=== PATIENT | female | born 1940 | race Caucasian/White ===

== ENCOUNTER → 2019-02-19 | Day surgery (SDC) | payer MEDICARE ==
[~2019-02-19] MED LIST: ASPIRIN81 MG PO; CALCIUM 500+D1 EACH PO; FENTANYL CITRATE/PF 100MCG/2 ML INJ ONE; FERROUS SULFAT324 MG PO; GLIMEPIRIDE1 MG PO; HYDROCHLOROTHIA25 MG PO; LISINOPRIL2.5 MG PO; METFORMIN HCL500 M2 PO; METOCLOPRAMIDE10 MG PO; METOPROLOL TART50 MG PO; MIDAZOLAM HCL 2 MG/2 ML VIAL ONE; OMEPRAZOLE40 MG PO; OR PHACO EYE KIT ONE; PREOP PHACO EYE KIT ONE; SIMVASTATIN20 MG PO; SUPER B COMPLEX PO; VITAMIN C WIT1000 MG PO; XARELTO20 MG PO; [UNRECOGNIZED DRUG - OTHER] PO
--- OUTSIDE RECORDS SUMMARY | 2019-02-19 08:31 | XMS REPORT | Encounter Summary ---
Author Organization Unknown Address [address] [place] [address] Phone [phone] Care Team Providers Care Script Artist Name Role Phone Dr. Jesse Byrd 3 [phone] Jesse Byrd Jr, MD 3 [phone] Tera Torres MD 82 [phone] Maurice Call MD 107 [phone] Windy Jacobson MD 126 [phone] Reason for Visit fever Instructions 1. Upper respiratory infection 2. Seasonal allergy Discussion Note: None recorded. Patient educational handouts: No information available. Plan of Care Reminders Provider Appointments None recorded. Lab None recorded. Referral None recorded. Procedures None recorded. Surgeries None recorded. Imaging None recorded. Medications Name Start Date Coricidin HBP Cold and Flu TAKE 2 TABS EVERY 4 - 6 HOURS dexamethasone 4 mg/mL injection solution Take 1 mL by injection route for 1 day. diltiazem ER 180 mg capsule,24 hr,extended release Take 1 capsule every day by oral route for 90 days. glimepiride 1 mg tablet Take 1 tablet every day by oral route for 90 days. hydrochlorothiazide 25 mg tablet Take 1 tablet every day by oral route for 90 days. lisinopril 5 mg tablet Take 1 tablet every day by oral route for 90 days. metformin ER 500 mg tablet,extended release 24 hr Take 2 tablets twice a day by oral route for 90 days. metoprolol tartrate 100 mg tablet Take 1 tablet twice a day by oral route. metronidazole 0.75 % topical gel APPLY A THIN LAYER TO THE AFFECTED AREA(S) BY TOPICAL ROUTE 2 TIMES PER DAY IN THE MORNING AND EVENING omeprazole 40 mg capsule,delayed release TAKE 1 CAPSULE BY MOUTH EVERY DAY OneTouch Delica Lancets 33 gauge Take 1 each every day by miscell. route for 90 days. OneTouch Ultra Blue Test Strip OneTouch Ultra Blue Test Strip Take 1 strip twice a day by miscell. route. simvastatin 20 mg tablet Take 1 tablet every day by oral route for 90 days. Tamiflu 75 mg capsule Take 1 capsule twice a day by oral route for 5 days. triamcinolone acetonide 40 mg/mL suspension for injection Take 1 mL by injection route for 1 day. Tylenol 500 mg tablet Take 2 tablets every 4 hours by oral route. Xarelto 20 mg tablet Take 1 tablet by oral route for 90 days. Medications Administered None recorded. Vitals Height Weight BMI Blood Pressure 5 ft 9 in 202 lbs 29.8 kg/m2 134/78 mm[Hg] Lab Results Date Name Specimen Result Interpretation Description Value Range Status Address 10/04/2018 Rapid Flu (A+B) Type Flu a negative [facility] ([facility]) Hobby: [id number] [id number], [place] Type Flu B negative [facility]) Hobby: [address] [address], [place] 10/04/2018 Glucose, Fingerstick, Blood Blood Glucose: mg/dl 98 [facility]) [address]: [address] [address], [place] 10/04/2018 Rapid Strep Group a, Throat Strep negative [facility] ([facility]) Hobby: [id number] [address], [place] 09/18/2018 Glucose, Fingerstick, Blood Blood Glucose: mg/dl 161 [facility] ([facility]) [address]obby: [address] [id number], [place] Allergies Code Code System Name Reaction Severity Status Onset NKDA Problems Name Status Onset Date Source Benign Hypertensive Heart Disease Active 03/28/2017 Paroxysmal Atrial Fibrillation Active 03/28/2017 Gastroesophageal Reflux Disease Active 03/28/2017 Type 2 Diabetes Mellitus Active 11/27/2017 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 11/27/2017 Peripheral Venous Insufficiency Active 11/27/2017 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 Rosacea Active 01/10/2018 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/10/2018 Tear of Medial Meniscus of Knee Active 10/01/2018 Rupture of Posterior Cruciate Ligament Active 10/01/2018 Procedures Date Name Performed by 10/19/2016 Colonoscopy & Polypectomy Information not available 07/17/2014 Other Information not available Hysterectomy (Partial) Information not available Vaccine List Vaccine Type pneumococcal conjugate PCV 13 06/16/20170.5 mL pneumococcal polysaccharide PPV23 11/05/2014 Social History Smoking Status Never Smoker Past Encounters 10/15/2018 Upper Respiratory Infection; Seasonal Allergy Jesse Byrd Jr, MD: [address], [address], [place] [address], Ph. 10/04/2018 Type 2 Diabetes Mellitus; Sore Throat Symptom; Fever; Viremia; Seasonal Allergic Rhinitis Karen Johnson MD: [address], [address], [place] [address], Ph. 09/18/2018 Type 2 Diabetes Mellitus; Paroxysmal Atrial Fibrillation; Epidermoid Cyst of Skin Jeses Byrd Jr, MD: [address], [address], [place] [address], Ph. History of Present Illness URI - AMS Reported By: Patient Upper Respiratory Symptoms: Onset/Timing: gradual. Duration: constant. Location: head, throat. Quality: no sore throat, nasal congestion/discharge, dry cough. Severity: moderate. Context: no sick contacts, no foreign travel. Associated Symptoms: no fever, no chills, no shortness of breath, no wheezing, no significant weight loss, no diarrhea, no nausea Review of Systems Comprehensive General Adult ROS Reported By: Patient Constitutional: Constitutional: no fever, no night sweats, no significant weight loss Eyes: Eyes: no vision change ENMT: Ears: no difficulty hearing, no ear pain. Mouth/Throat: sore throat Cardiovascular: Cardiovascular: no chest pain, no shortness of breath when walking Respiratory: Respiratory: no wheezing, no shortness of breath, cough Gastrointestinal: Gastrointestinal: no nausea, no diarrhea Musculoskeletal: Musculoskeletal: no arthralgias/joint pain Integumentary: Skin: no rashes Endocrine: Endocrine: fatigue Allergic/Immunologic: Allergy/Immunologic: runny nose Physical Exam Upper Respiratory Infection Exam Comprehensive Reported By: Patient Constitutional: General Appearance in no acute distress Head: Sinuses no tenderness Ears: Right External auditory canal normal appearance, no erythema. Left External auditory canal normal appearance, no erythema. Right Tympanic membrane dull, bulging. Left Tympanic membrane: dull, bulging Nose: Nasal Skin: no lesion, no lacerations. Nasal Mucosa normal, pink and moist Oral Cavity/Mouth: Oral Mucosa: normal, moist, no lesions. Posterior pharynx: lymphoid hyperplasia (cobblestoning) Lymph Nodes: Cervical no palpable lymph node enlargement Neck: Neck symmetrical, trachea midline Lungs: Respiratory effort unlabored. Auscultation breath sounds normal, no wheezing, no rales / crackles, no rhonchi Cardiovascular System: Auscultation regular rate and rhythm, no murmur, no rubs
--- OUTSIDE RECORDS SUMMARY | 2019-02-19 08:31 | XMS REPORT | Encounter Summary ---
Author Organization Unknown Address [address] [place] [address] Phone [phone] Care Team Providers Care Head Trimmer Name Role Phone Dr. Jesse Byrd 3 [phone] Jesse Byrd Jr, MD 3 [phone] Tera Torres MD 82 [phone] Maurice Call MD 107 [phone] Windy Jacobson MD 126 [phone] Reason for Visit Quality BMI DEPRESSION FALL; AWV Annual Wellness Visit Female (VFP); hypertension; diabetes Instructions 1. Adult health examination 2. Body mass index 25-29 - overweight learning about healthy weight 3. Overweight learning about healthy weight 4. Advance directive discussed with patient advance care planning: care instructions 5. Depression screening 6. At risk for falls preventing falls: care instructions 7. Type 2 diabetes mellitus glucose, fingerstick, blood metformin ER 500 mg tablet,extended release 24 hr glimepiride 1 mg tablet OneTouch Ultra Blue Test Strip OneTouch Delica Lancets 33 gauge 8. Benign hypertensive heart disease 9. Paroxysmal atrial fibrillation 10. Long-term current use of anticoagulant 11. Non-thrombocytopenic purpura 12. Screening for malignant neoplasm of breast 13. Screening for osteoporosis Discussion Note: None recorded. Plan of Care Patient Instructions Screening Recommendations 1. Vaccines Pneumococcal: discussed today and information sent with patient in their Annual Wellness health folder Influenza: Recommended today Shingles: discussed today and information sent with patient in their Annual Wellness health folder Tetanus: discussed today and information sent with patient in their Annual Wellness health folder 2. Mammography Screening: Recommended today 3. Colorectal cancer Screening Colonoscopy: Your next one in: 3 years Fecal Occult Blood: discussed today and information sent with patient in their Annual Wellness health folder 4. Bone Mass Measurement: Recommended today 5. Pap test / Pelvic Exam Screening: No screening necessary 6. Eye Exam Screening: discussed today 7. Cholesterol Screening: discussed today 8. Diabetes Screening: discussed today It was good to see you in the office today for your Medicare Annual Wellness Visit. You have been provided some information on healthy nutrition, including a diet rich in fruits and vegetables, minimizing simple carbohydrates, salt, and saturated fats. I want to encourage regular cardiovascular exercise such as walking at least 30 minutes daily, 5 times per week. Please remember to schedule any preventive health measures that we talked about today. You have also been provided education on fall prevention and community- based lifestyle interventions to help reduce health risks and promote healthy living in your Annual Wellness folder. Reminders Provider Appointments None recorded. Lab Glucose, Fingerstick, Blood 09/10/2018 [facility] ([facility]) Hobby Referral None recorded. Procedures None recorded. Surgeries None recorded. Imaging None recorded. Medications Name Start Date diltiazem ER 180 mg capsule,24 hr,extended release [...] 90 days. OneTouch Ultra Blue Test Strip Take 1 strip twice a day by miscell. route. OneTouch Ultra Blue Test Strip simvastatin 20 mg tablet Take 1 tablet every day by oral route for 90 days. Xarelto 20 mg tablet Take 1 tablet by oral route for 90 days. Medications Administered None recorded. Vitals Height Weight BMI Blood Pressure 5 ft 9 in 206 lbs 30.4 kg/m2 142/78 mm[Hg] Lab Results None recorded. Allergies Code Code System Name Reaction Severity [...] Rosacea Active 01/10/2018 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/10/2018 Procedures Date Name Performed by 10/19/2016 Colonoscopy & Polypectomy Information not available 07/17/2014 Other Information not available Hysterectomy (Partial) Information not available Vaccine List Vaccine Type pneumococcal conjugate PCV 13 06/16/20170.5 mL pneumococcal polysaccharide PPV23 11/05/2014 Social History Smoking Status Never Smoker Past Encounters 09/10/2018 Adult Health Examination; Body Mass Index 25-29 - Overweight; Overweight; Advance Directive Discussed with Patient; Depression Screening; At Risk for Falls; Type 2 Diabetes Mellitus; Benign Hypertensive Heart Disease; Paroxysmal Atrial Fibrillation; Long-term Current Use of Anticoagulant; Non- thrombocytopenic Purpura; Screening for Malignant Neoplasm of Breast; Screening for Osteoporosis Jesse Byrd Jr, MD: [id number] [place] [facility], [address], [place] [address], Ph. History of Present Illness Hypertension Reported By: Patient HPI: Severity: mild. Onset/Timing: gradual onset. Alleviating Factors: relieved with rest, medication. Self Care: not under emotional stress, blood pressure goal: 130/80. Associated Symptoms: no shortness of breath, no fatigue, no decline in exercise capacity Diabetes F/U Reported By: Patient HPI: Review finger sticks: normal range of home blood sugars (in the low 100s). Labs: last A1C result: 6.3. Context: no side effects from medications. Associated Symptoms: no dizziness, no sweats, no headaches, no confusion, no increased thirst, no increased appetite, no increased urination, no blurred vision, no numbness of feet Notes: Endorses medication compliance. Mini Cog Reported By: Patient Functional Ability: Personal/Social/ Draw a clock and write in the numbers in the correct place, and set the time to 10 minutes after 11 o'clock was completed correctly? Yes, 3 word recall: Your nurse or doctor will ask you to remember 3 words. In 5 minutes, they will ask you to repeat them. Patient recalled 3 words Hyperlipidemia Reported By: Patient HPI: Type of hyperlipidemia: combined, hypercholesterolemia. Duration: chronic. Current Therapy: currently taking: simvastatin, last LDL level: 86 date: . Complications: no coronary artery disease Review of Systems Comprehensive General Adult ROS Reported By: Patient Constitutional: Constitutional: no fever, no significant weight loss, no exercise intolerance, weight gain (9lbs) Eyes: Eyes: no vision change Cardiovascular: Cardiovascular: no chest pain, no shortness of breath when walking, no palpitations, no lightheadedness Respiratory: Respiratory: no cough, no wheezing, no shortness of breath Gastrointestinal: Gastrointestinal: no abdominal pain, no nausea, no vomiting, no constipation, normal appetite, no diarrhea Genitourinary: Genitourinary: no difficulty urinating, no increased frequency Musculoskeletal: Musculoskeletal: no muscle weakness, no arthralgias/joint pain Integumentary: Skin: no rashes, no laceration Neurologic: Neurologic: no weakness, no numbness, no dizziness Endocrine: Endocrine: no fatigue Physical Exam Cardiology Exam, Diabetes, Diabetic Foot Exam Reported By: Patient Constitutional: General Appearance: well-nourished, well-developed, appears stated age. Level of Distress: comfortable Lungs: Respiratory Effort: unlabored. Chest Exam: normal curvature, no thoracic deformity, no chest wall tenderness. Auscultation: clear, no wheezing, no rales, no rhonchi Cardiovascular: Rate And Rhythm: regular. Heart Sounds: normal S1, physiologically split S2, no rub, no gallop, no click. Systolic Murmur: not heard. Diastolic Murmur: not heard. Extremities: no cyanosis, no edema, no peripheral signs of emboli Peripheral Pulses: Pulses: full and equal in all extremities except if noted. Radial Pulse: normal Skin: Inspection and Palpation: warm and dry. Nails: no clubbing
--- OUTSIDE RECORDS SUMMARY | 2019-02-19 08:31 | XMS REPORT | Continuity of Care Document ---
Author Author [facility] Organization [facility] Address Unknown Phone Unavailable Care Team Providers Care Admissions Assistant Name Role Phone [employer] Unavailable Unavailable Problems Problem Status Onset Date Classification Date Reported Comments Source Upper respiratory infection 10/15/2018 Diagnosis 10/15/2018 [facility] Seasonal allergy 10/15/2018 Diagnosis 10/15/2018 [facility] Seasonal allergic rhinitis 10/04/2018 Diagnosis 10/15/2018 [facility] Viremia 10/04/2018 Diagnosis 10/15/2018 [facility] Fever 10/04/2018 Diagnosis 10/15/2018 [facility] Sore throat symptom 10/04/2018 Diagnosis 10/15/2018 [facility] Tear of Medial Meniscus of Knee 10/01/2018 Problem 10/15/2018 [facility] Rupture of Posterior Cruciate Ligament 10/01/2018 Problem 10/15/2018 [facility] Epidermoid cyst of skin 09/18/2018 Diagnosis 10/15/2018 [facility] Paroxysmal atrial fibrillation 09/18/2018 Diagnosis 10/15/2018 [facility] Type 2 diabetes mellitus 09/18/2018 Diagnosis 10/15/2018 [facility] Screening for osteoporosis 09/10/2018 Diagnosis 10/05/2018 [facility] Long-term current use of anticoagulant 09/10/2018 Diagnosis 10/05/2018 [facility] Non-thrombocytopenic purpura 09/10/2018 Diagnosis 10/05/2018 [facility] Benign hypertensive heart disease 09/10/2018 Diagnosis 10/05/2018 [facility] Overweight 09/10/2018 Diagnosis 10/05/2018 [facility] Body mass index 25-29 - overweight 09/10/2018 Diagnosis 10/05/2018 [facility] Adult health examination 09/10/2018 Diagnosis 10/05/2018 [facility] At risk for falls 09/10/2018 Diagnosis 10/05/2018 [facility] Advance directive discussed with patient 09/10/2018 Diagnosis 10/05/2018 [facility] Depression screening 09/10/2018 Diagnosis 10/05/2018 [facility] Non-thrombocytopenic Purpura 09/10/2018 Problem 10/15/2018 [facility] Rosacea 01/10/2018 Problem 10/15/2018 [facility] Anti-nuclear Factor Positive 11/28/2017 Problem 10/15/2018 [facility] Type 2 Diabetes Mellitus 11/27/2017 Problem 10/15/2018 [facility] Varicose Veins of Lower Extremity with Inflammation 11/27/2017 Problem 10/15/2018 [facility] Peripheral Venous Insufficiency 11/27/2017 Problem 10/15/2018 [facility] Benign Hypertensive Heart Disease 03/28/2017 Problem 10/15/2018 [facility] Paroxysmal Atrial Fibrillation 03/28/2017 Problem 10/15/2018 [facility] Gastroesophageal Reflux Disease 03/28/2017 Problem 10/15/2018 [facility] Medications Medication Details Route Status Patient Instructions Ordering Provider Order Date Source 24 HR Diltiazem Hydrochloride 180 MG Extended Release Oral Capsule diltiazem ER 180 mg capsule,24 hr,extended release Take 1 capsule every day by oral route for 90 days. Active [facility] glimepiride 1 MG Oral Tablet glimepiride 1 mg tablet Take 1 tablet every day by oral route for 90 days. Active [facility] Hydrochlorothiazide 25 MG Oral Tablet hydrochlorothiazide 25 mg tablet Take 1 tablet every day by oral route for 90 days. Active [facility] Lisinopril 5 MG Oral Tablet lisinopril 5 mg tablet Take 1 tablet every day by oral route for 90 days. Active [facility] 24 HR Metformin hydrochloride 500 MG Extended Release Oral Tablet metformin ER 500 mg tablet,extended release 24 hr Take 2 tablets twice a day by oral route for 90 days. Active [facility] Metoprolol Tartrate 100 MG Oral Tablet metoprolol tartrate 100 mg tablet Take 1 tablet twice a day by oral route. Active [facility] Metronidazole 0.0075 MG/MG Topical Gel metronidazole 0.75 % topical gel APPLY A THIN LAYER TO THE AFFECTED AREA(S) BY TOPICAL ROUTE 2 TIMES PER DAY IN THE MORNING AND EVENING Active [facility] Omeprazole 40 MG Delayed Release Oral Capsule omeprazole 40 mg capsule,delayed release TAKE 1 CAPSULE BY MOUTH EVERY DAY Active [facility] OneTouch Delica Lancets 33 gauge OneTouch Delica Lancets 33 gauge Take 1 each every day by miscell. route for 90 days. Active [facility] OneTouch Ultra Blue Test Strip OneTouch Ultra Blue Test Strip Active [facility] Simvastatin 20 MG Oral Tablet simvastatin 20 mg tablet Take 1 tablet every day by oral route for 90 days. Active [facility] rivaroxaban 20 MG Oral Tablet [Xarelto] Xarelto 20 mg tablet Take 1 tablet by oral route for 90 days. Active [facility] Coricidin HBP Cold & Flu Coricidin HBP Cold and Flu TAKE 2 TABS EVERY 4 - 6 HOURS Active [facility] 1 ML Dexamethasone phosphate 4 MG/ML Injection dexamethasone 4 mg/mL injection solution Take 1 mL by injection route for 1 day. Active [facility] Oseltamivir 75 MG Oral Capsule [Tamiflu] Tamiflu 75 mg capsule Take 1 capsule twice a day by oral route for 5 days. Active [facility] 1 ML Triamcinolone Acetonide 40 MG/ML Injection triamcinolone acetonide 40 mg/mL suspension for injection Take 1 mL by injection route for 1 day. Active [facility] Tylenol 500 mg tablet Tylenol 500 mg tablet Take 2 tablets every 4 hours by oral route. Active [facility] Allergies, Adverse Reactions, Alerts No Known Medication Allergies Immunizations Immunization Date Given Site Status Last Updated Comments Source pneumococcal conjugate PCV 13 06/16/2017 completed [facility] pneumococcal polysaccharide PPV23 11/05/2014 completed [facility] Results Order Name Results Value Reference Range Date Interpretation Comments Source Type Flu A negative 10/04/2018 [facility] Type Flu B negative 10/04/2018 [facility] Glucose [Mass/volume] in Capillary blood Blood Glucose: mg/dl 98 10/04/2018 [facility] Strep negative 10/04/2018 [facility] Glucose [Mass/volume] in Capillary blood Blood Glucose: mg/dl 161 09/18/2018 [facility] Glucose [Mass/volume] in Capillary blood Blood Glucose: mg/dl 161 09/18/2018 [facility] Glucose [Mass/volume] in Capillary blood Blood Glucose: mg/dl 91 09/10/2018 [facility] Glucose [Mass/volume] in Capillary blood Blood Glucose: mg/dl 91 09/10/2018 [facility] Pathology Reports No Data Provided for This Section Diagnostic Reports No Data Provided for This Section Consultation Notes No Data Provided for This Section Discharge Summaries No Data Provided for This Section History and Physicals No Data Provided for This Section Vital Signs Vital Sign Value Date Comments Source Diastolic (mm Hg) 78 10/15/2018 [facility] Height 69 10/15/2018 [facility] Systolic (mm Hg) 134 10/15/2018 [facility] Weight 202 10/15/2018 [facility] Diastolic (mm Hg) 78 10/04/2018 [facility] Height 69 10/04/2018 [facility] Systolic (mm Hg) 138 10/04/2018 [facility] Weight 206 10/04/2018 [facility] Diastolic (mm Hg) 70 09/18/2018 [facility] Height 69 09/18/2018 [facility] Systolic (mm Hg) 120 09/18/2018 [facility] Weight 207 09/18/2018 [facility] Diastolic (mm Hg) 78 09/10/2018 [facility] Height 69 09/10/2018 [facility] Systolic (mm Hg) 142 09/10/2018 [facility] Weight 206 09/10/2018 [facility] Encounters Location Location Details Encounter Type Encounter Number Reason For Visit Attending Provider ADM Date DC Date Status Source [facility] Byrd Jr, MD: [address], [facility] [address] [address], Ph. [id number] Jesse Byrd Jr 09/10/2018 [facility] Byrd Jr, MD: [address], [facility] [address] [address], Ph. [id number] Jesse Byrd Jr 09/10/2018 [facility] Byrd Jr, MD: [address], [facility] [address] [id number], Ph. [id number] Jesse Byrd Jr 09/10/2018 [facility] Byrd Jr, MD: [address], [facility] [address] [id number], Ph. [id number] Jesse Byrd Jr 09/18/2018 [facility] Jesse Byrd Jr, MD: [address], [address], [place] [address], Ph. [id number] Jesse Byrd Jr 09/18/2018 [facility] Jesse Byrd Jr, MD: [address], [address], [place] [address], Ph. [id number] Jesse Byrd Jr 09/18/2018 [facility] Karen Johnson MD: [address], [address], [place] [address], Ph. [id number] Thrvicki Mcraelorsuresh 10/04/2018 [facility] Johnson MD: [address], [address], [place] [address], Ph. [id number] Thriveni Thorlorsuresh 10/04/2018 [facility] Jesse Byrd Jr, MD: [address], [address], [address], Ph. [id number] Jesse Byrd Jr 10/15/2018 [facility] Procedures Procedure Code Date Perfomer Comments Source Colonoscopy & Polypectomy 25213 10/19/2016 [facility] Other 07/17/2014 [facility] Hysterectomy (Partial) [facility] Assessment and Plan No Data Provided for This Section Plan of Care No Data Provided for This Section Social History Social History Date Source Smoking Status Never Smoker 06/16/2017 [facility] Family History No Data Provided for This Section Advance Directives No Data Provided for This Section Functional Status No Data Provided for This Section
--- OUTSIDE RECORDS SUMMARY | 2019-02-19 08:32 | XMS REPORT | Encounter Summary ---
Author Organization Unknown Address [address] [place] [address] Phone [phone] Care Team Providers Care Agri Business Agent Name Role Phone Dr. Jesse Byrd 3 [phone] Jesse Byrd Jr, MD 3 [phone] Tera Torres MD 82 [phone] Maurice Call MD 107 [phone] Windy Jacobson MD 126 [phone] Reason for Visit sore throat; fever Instructions 1. Type 2 diabetes mellitus 2. Sore throat symptom rapid strep group A, throat glucose, fingerstick, blood 3. Fever rapid flu (A+B) 4. Viremia Tamiflu 75 mg capsule 5. Seasonal allergic rhinitis triamcinolone acetonide 40 mg/mL suspension for injection dexamethasone 4 mg/mL injection solution Discussion Note f/u in 3 mths with pcp Patient educational handouts: No information available. Plan of Care Reminders Provider Appointments None recorded. Lab Rapid Strep Group a, Throat 10/04/2018 [facility] ([facility] Hobby Rapid Flu (A+B) 10/04/2018 [facility] Glucose, Fingerstick, Blood 10/04/2018 [facility] Referral None recorded. Procedures None recorded. Surgeries [...] oral route for 90 days. Medications Administered Name Date triamcinolone acetonide 40 mg/mL suspension for injection Take 1 mL by injection route for 1 day. 9146-43-27O30:33:00 dexamethasone 4 mg/mL injection solution Take 1 mL by injection route for 1 day. 0840-81-15M76:34:00 Vitals Height Weight BMI Blood Pressure 5 ft 9 in 206 lbs 30.4 kg/m2 138/78 mm[Hg] Lab Results Date Name Specimen Result Interpretation Description Value Range Status Address 10/04/2018 Rapid Flu (A+B) Type Flu a negative [facility] ([facility] Hobby: [address] Type Flu B negative [facility]) Hobby: [address] 09/18/2018 Glucose, Fingerstick, Blood Blood Glucose: mg/dl 161 [facility]) Hobby: [id number] [place] [address], [place] 09/10/2018 Glucose, Fingerstick, Blood Blood Glucose: mg/dl 91 [facility]) Hobby: [address] Allergies Code Code System Name Reaction Severity [...] History Smoking Status Never Smoker Past Encounters 10/04/2018 Type 2 Diabetes Mellitus; Sore Throat Symptom; Fever; Viremia; Seasonal Allergic Rhinitis Karen Johnson MD: [address], [address], [place] [address], Ph. 09/18/2018 Type 2 Diabetes Mellitus; Paroxysmal Atrial Fibrillation; Epidermoid Cyst of Skin Jesse Byrd Jr, MD: [address], [address], [place] [address], Ph. 09/10/2018 Adult Health Examination; Body Mass Index 25-29 - Overweight; Overweight; Advance Directive Discussed with Patient; Depression Screening; At Risk for Falls; Type 2 Diabetes Mellitus; Benign Hypertensive Heart Disease; Paroxysmal Atrial Fibrillation; Long-term Current Use of Anticoagulant; Non- thrombocytopenic Purpura; Screening for Malignant Neoplasm of Breast; Screening for Osteoporosis Jesse Byrd Jr, MD: [address], [facility], [place] [address], Ph. History of Present Illness Note:Here because she has has fever of 103 since last night , TOOK a pill - for fever .Sneezing ++, runny nose ++, stuffy nose ++, h/o seasonal allergies . pain when swallowing - 6 /10. No sick contacts Review of Systems:ROS as noted in the HPI Review of Systems None recorded. Physical Exam General Adult Exam (Female) Reported By: Patient Constitutional: General Appearance: well-developed, obese; looking tired. Level of Distress: moderate distress. Ambulation: ambulating normally Psychiatric: Insight: good judgement. Mental Status: active and alert, normal mood, normal affect. Orientation: to time, to place, to person Head: Head: normocephalic, atraumatic Eyes: Lids and Conjunctivae: non-injected, no discharge, no pallor. Pupils: PERRLA. Corneas: grossly intact. EOM: EOMI. Lens: clear. Sclerae: non-icteric ENMT: Ears: no lesions on external ear, EACs clear, TM bulging. Hearing: no hearing loss. Nose: no lesions on external nose, nares patent, no septal deviation, nasal passages clear, no sinus tenderness, no nasal discharge. Lips, Teeth, and Gums: no mouth or lip ulcers, no bleeding gums, normal dentition. Oropharynx: moist mucous membranes, no erythema, no exudates, tonsils not enlarged; COBBLESTONE PATTERN in posterior pharyngeal wall Neck: Neck: supple, trachea midline, no masses, FROM. Lymph Nodes: no cervical LAD, no supraclavicular LAD, no axillary LAD. Thyroid: no enlargement, non- tender, no nodules Lungs: Respiratory effort: no dyspnea. Auscultation: breath sounds normal, good air movement, CTA except as noted, no wheezing, no rales/crackles, no rhonchi Cardiovascular: Heart Auscultation: RRR, normal S1, normal S2, no murmurs, no rubs, no gallops Abdomen: Bowel Sounds: normal. Inspection and Palpation: soft, non-distended, no tenderness, no guarding, no rebound tenderness, no masses, no CVA tenderness. Liver: non-tender, no hepatomegaly Musculoskeletal:: Motor Strength and Tone: normal motor strength, normal tone. Joints, Bones, and Muscles: normal movement of all extremities, no bony abnormalities, no contractures, no malalignment, no tenderness. Extremities: no cyanosis, no edema, no varicosities Neurologic: Gait and Station: normal gait, normal station. Cranial Nerves: grossly intact. Sensation: grossly intact Skin: Inspection and palpation: no rash, no lesions, no abnormal nevi, good turgor, no jaundice. Nails: normal Back: Thoracolumbar Appearance: normal curvature
--- OUTSIDE RECORDS SUMMARY | 2019-02-19 08:32 | XMS REPORT | Encounter Summary ---
Author Organization Unknown Address [address] [place] [address] Phone [phone] Care Team Providers Care Sales Service Manager Name Role Phone Dr. Jesse Byrd 3 [phone] Jesse Byrd Jr, MD 3 [phone] Tera Torres MD 82 [phone] Maurice Call MD 107 [phone] Windy Jacobson MD 126 [phone] Reason for Visit hypertension; diabetes Instructions 1. Type 2 diabetes mellitus glimepiride 1 mg tablet metformin ER 500 mg tablet,extended release 24 hr glucose, fingerstick, blood HbA1c (hemoglobin A1c), blood microalbumin:creatinine ratio, urine diabetic ophthalmology referral 2. Benign hypertensive heart disease CMP, serum or plasma CBC w/ auto diff urinalysis, dipstick 3. Paroxysmal atrial fibrillation 4. Hyperlipidemia lipid panel, serum 5. Screening for malignant neoplasm of breast 6. Postmenopausal state 7. Immunization refused Discussion Note: None recorded. Patient educational handouts: No information available. Plan of Care Reminders Provider Appointments None recorded. Lab Glucose, Fingerstick, Blood 11/29/2018 [facility] Lipid Panel, Serum 11/29/2018 [facility] CMP, Serum or Plasma 11/29/2018 [facility] CBC W/ Auto Diff 11/29/2018 [facility] HbA1C (Hemoglobin a1C), Blood 11/29/2018 [facility] Microalbumin:creatinine Ratio, Urine 11/29/2018 [facility] Urinalysis, Dipstick 11/29/2018 [facility] Referral Diabetic Ophthalmology Referral 11/29/2018 Procedures None recorded. Surgeries None recorded. Imaging None recorded. Medications Name Start Date Coricidin HBP Cold and Flu TAKE 2 TABS EVERY 4 - 6 HOURS diltiazem ER 180 mg capsule,24 hr,extended release Take 1 capsule every day by oral route for 90 days. glimepiride 1 mg tablet Take 1 tablet every day by oral route. hydrochlorothiazide 25 mg tablet Take 1 tablet every day by oral route for 90 days. lisinopril 5 mg tablet Take 1 tablet every day by oral route for 90 days. metformin ER 500 mg tablet,extended release 24 hr Take 2 tablets twice a day by oral route. metoprolol tartrate 100 mg tablet Take 1 [...] 90 days. OneTouch Ultra Blue Test Strip USE 1 STRIP 2 TIMES DAILY OneTouch Ultra Blue Test Strip simvastatin 20 mg tablet Take 1 tablet every day by oral route for 90 days. Tylenol 500 mg tablet Take 2 tablets every 4 hours by oral route. Xarelto 20 mg tablet Take 1 tablet by oral route for 90 days. Medications Administered None recorded. Vitals Height Weight BMI Blood Pressure 5 ft 9 in 203 lbs 30 kg/m2 126/80 mm[Hg] Lab Results Date Name Specimen Result Interpretation Description Value Range Status Address Glucose, Fingerstick, Blood Blood Glucose: mg/dl 115 [facility] ([facility]) Hobby: [id number] Allergies Code Code System Name Reaction [...] History Smoking Status Never Smoker Past Encounters 11/29/2018 Type 2 Diabetes Mellitus; Benign Hypertensive Heart Disease; Paroxysmal Atrial Fibrillation; Hyperlipidemia; Screening for Malignant Neoplasm of Breast; Postmenopausal State; Immunization Refused Jesse Byrd Jr, MD: [address] [facility], [place] [address], Ph. History of Present Illness Hypertension Reported By: Patient HPI: Severity: mild. Onset/Timing: gradual onset. Alleviating Factors: relieved with rest, medication. Self Care: not under emotional stress, blood pressure goal: 130/80. Associated Symptoms: no shortness of breath, no fatigue, no decline in exercise capacity Diabetes F/U Reported By: Patient HPI: Labs: last A1C result: . Context: no side effects from medications. Associated Symptoms: no dizziness, no sweats, no headaches, no confusion, no increased thirst, no increased appetite, no increased urination, no blurred vision, no numbness of feet Notes: Endorses medication compliance. Hyperlipidemia Reported By: Patient HPI: Type of hyperlipidemia: combined, hypercholesterolemia. Duration: chronic. Current Therapy: currently taking:. Complications: no coronary artery disease Review of Systems Comprehensive General Adult ROS, Diabetes F/U ROS Reported By: Patient Constitutional: Constitutional: no fever, no significant weight gain, no significant weight loss, no exercise intolerance Eyes: Eyes: no vision change Cardiovascular: Cardiovascular: no chest pain, no shortness of breath when walking, no palpitations, no lightheadedness, no SOB Respiratory: Respiratory: no cough, no wheezing, no shortness of breath Gastrointestinal: Gastrointestinal: no abdominal pain, no nausea, no vomiting, no constipation, normal appetite, no diarrhea Genitourinary: Genitourinary: no difficulty urinating, no increased frequency Musculoskeletal: Musculoskeletal: no muscle weakness, no arthralgias/joint pain Integumentary: Skin: no rashes, no laceration Neurologic: Neurologic: no weakness, no numbness, no dizziness Endocrine: Endocrine: no fatigue Extremities: Extremities: no edema, no ulcers Physical Exam Cardiology Exam, Diabetes, Diabetic Foot Exam Reported By: Patient Constitutional: General Appearance: well-nourished, well-developed, appears stated age. Level of Distress: comfortable Lungs: Respiratory Effort: unlabored. Chest Exam: no chest wall tenderness. Auscultation: clear, no wheezing, no rales, no rhonchi Cardiovascular: Rate And Rhythm: regular. Heart Sounds: normal S1, physiologically split S2, no rub, no gallop, no click. Systolic Murmur: not heard. Diastolic Murmur: not heard. Extremities: no cyanosis, no edema, no peripheral signs of emboli Peripheral Pulses: Pulses: full and equal in all extremities except if noted Skin: Inspection and Palpation: warm and dry
--- OUTSIDE RECORDS SUMMARY | 2019-02-19 08:32 | XMS REPORT | Encounter Summary ---
Author Organization Unknown Address [address] [place] [address] Phone [phone] Care Team Providers Care Paradichlorobenzene Machine Operator Name Role Phone Dr. Jesse Byrd 3 [phone] Jesse Byrd Jr, MD 3 [phone] Tera Torres MD 82 [phone] Maurice Call MD 107 [phone] Windy Jacobson MD 126 [phone] Reason for Visit other - see typed reason Instructions 1. Type 2 diabetes mellitus glucose, fingerstick, blood 2. Paroxysmal atrial fibrillation cardiology referral 3. Epidermoid cyst of skin general surgery referral Discussion Note: None recorded. Patient educational handouts: No information available. Plan of Care Reminders Provider Appointments None recorded. Lab Glucose, Fingerstick, Blood 09/18/2018 [facility] ([facility]) [facility] Referral Cardiology Referral 09/18/2018 Tera Torres MD General Surgery Referral 09/18/2018 Procedures None recorded. Surgeries None recorded. Imaging [...] 1 CAPSULE BY MOUTH EVERY DAY OneTouch Delnatalee Lancets 33 gauge Take 1 each every [...] BMI Blood Pressure 5 ft 9 in 207 lbs 30.6 kg/m2 120/70 mm[Hg] Lab Results Date Name Specimen Result Interpretation Description Value Range Status Address 09/10/2018 Glucose, Fingerstick, Blood Blood Glucose: mg/dl 91 [facility] ([facility]) Hobby: [address] Allergies Code Code System Name Reaction [...] History Smoking Status Never Smoker Past Encounters 09/18/2018 Type 2 Diabetes Mellitus; Paroxysmal Atrial Fibrillation; Epidermoid Cyst of Skin Jesse Byrd Jr, MD: [address] [address], Ph. 09/10/2018 Adult Health Examination; Body Mass Index 25-29 - Overweight; Overweight; Advance Directive Discussed with Patient; Depression Screening; At Risk for Falls; Type 2 Diabetes Mellitus; Benign Hypertensive Heart Disease; Paroxysmal Atrial Fibrillation; Long-term Current Use of Anticoagulant; Non- thrombocytopenic Purpura; Screening for Malignant Neoplasm of Breast; Screening for Osteoporosis Jesse Byrd Jr, MD: [address] [address], Ph. History of Present Illness Rash/Skin Lesion Reported By: Patient HPI: Location: legs. Quality: not bleeding, painful, localized, single, increasing in size. Severity: mild. Duration: has noted for . Onset/Timing: gradual onset, abrupt onset. Context: no new detergents or skin products, no one else with similar rash, not scratching. Alleviating Factors: ; No relief with OTC antihistamines. Associated Symptoms: no fever, no cold symptoms, no nausea, no vomiting, no diarrhea; No mucocutaneous involvement, shortness of breath, or wheezing. Treatment History: no history of treatment Review of Systems:ROS as noted in the HPI Review of Systems Comprehensive General Adult ROS Reported By: Patient Constitutional: Constitutional: no significant weight gain, no significant weight loss Cardiovascular: Cardiovascular: no chest pain, no shortness of breath when walking Respiratory: Respiratory: no cough, no wheezing, no shortness of breath Integumentary: Skin: no abnormal mole, no jaundice, no rashes, no laceration Endocrine: Endocrine: no fatigue Physical Exam Skin Exam Reported By: Patient Constitutional: General Appearance: healthy-appearing, well-nourished, well-developed. Level of Distress: NAD. Ambulation: ambulating normally Psychiatric: Insight: good judgement. Mental Status: active and alert, normal mood, normal affect. Orientation: to time, to place, to person. Memory: recent memory normal, remote memory normal Skin: Lower Extremities Right: cyst
--- OUTSIDE RECORDS SUMMARY | 2019-02-19 08:32 | XMS REPORT ---
Author [facility] Address Unknown Phone Unavailable Care Team Providers Care Information Technology Security Analyst Name Role Phone Unavailable Unavailable Payers Payer Name Policy Type Policy Number Effective Date Expiration Date Problems This patient has no known problems. Allergies, Adverse Reactions, Alerts This patient has no known allergies or adverse reactions. Medications This patient has no known medications. Results Test Description Test Time Test Comments Text Results Atomic Results Result Comments - MRI LW JNT W/O CONT RT 2018-10-01 11:37:00 FAX: Jesse Shah Jr [phone] [facility] [place]: St: REG Name: FEDE MANSFIELD [facility] : 1940 Age/S: 78/M [address] [facility] Unit #: [id number] Loc: [place] [address] Phys: Uriel Arshad MD Acct: [id number] Dis Date: Status: REG CLI PHONE #: [phone] Exam Date: 10/01/2018 1039 FAX #: [phone] Reason: [id number] EXAMS: CPT CODE: [id number] MRI LW JNT W/[place] [address] HISTORY: Right knee mass. COMPARISON: None available. MRI right knee without contrast: Quadriceps and patellar tendons are intact. Infrapatellar Hoffa's fat and prefemoral fat are normal. Mild edema of the quadriceps fat. No bone bruise or acute fracture or osteochondral lesions. Intact ACL. Chronic tear of the PCL. Lateral meniscus is intact. Degenerative signal and mucoid degeneration. Flap tears of both the anterior and posterior horns of the medial meniscus displaced into the inferior and superior recess respectively with severe truncation. Meniscal extrusion. MCL and LCL complex are intact. Popliteus tendon is without tear. Musculature demonstrating normal signal. Small physiologic joint fluid. Subchondral cyst within the patellar apex. Cartilage is preserved. Popliteal cyst along the medial head of the gastrocnemius muscle. Extensive prepatellar soft tissue swelling measuring 1.3 cm in AP direction, 2.6 cm in width and 3.7 cm in length. Soft tissue swelling extends mildly medially and laterally as wel l. IMPRESSION: Flap tears of both anterior and posterior horns of the medial meniscus displaced inferiorly and superiorly respectively into the medial recess with severe truncation. Meniscal extrusion. Intact ACL with chronic tear of the PCL. MCL and LCL are intact. Prepatellar soft tissue swelling measuring 1.3 x 2.6 x 3.7 cm. Small physiologic joint fluid. Mild edema of the quadriceps fat. at 1137 Reported and signed by: Sherman Vaughn M.D. CC: Jesse Byrd Jr, MD Technologist: JACQUES CHRISTINERT - LINDA Trnscrd Date/Time/By: 10/01/2018 (1212) : By: [email or web address] Orig Print D/T: S: 10/01/2018 (4311) PAGE 1 Signed Report
--- OUTSIDE RECORDS SUMMARY | 2019-02-19 08:32 | XMS REPORT | Encounter Summary ---
Author Organization Unknown Address [address] [place] [address] Phone [phone] Care Team Providers Care Airport Operations Crew Member Name Role Phone Dr. Jesse Byrd 3 [phone] Jesse Byrd Jr, MD 3 [phone] Tera Torres MD 82 [phone] Maurice Call MD 107 [phone] Windy Jacobson MD 126 [phone] Reason for Visit pre-op evaluation Instructions 1. Pre-surgery evaluation 2. Type 2 diabetes mellitus glucose, fingerstick, blood 3. Hypertensive heart AND renal disease CBC w/ auto diff electrocardiogram 4. Chronic kidney disease stage 3 5. Paroxysmal atrial fibrillation 6. Hypertrophic cardiomyopathy 7. Screening for cardiovascular system disease ankle brachial index Discussion Note: None recorded. Patient educational handouts: No information available. Plan of Care Reminders Provider Appointments None recorded. Lab Glucose, Fingerstick, Blood 01/28/2019 [facility] CBC W/ Auto Diff 01/28/2019 [facility] Laboratory Referral None recorded. Procedures None recorded. Surgeries None recorded. Imaging Ankle Brachial Index 01/28/2019 [facility]) [facility] Electrocardiogram 01/28/2019 [facility]) [facility] Medications Name Start Date Coricidin HBP Cold and Flu TAKE 2 TABS EVERY 4 - 6 HOURS diltiazem ER 180 mg capsule,24 hr,extended release Take 1 capsule every day by oral route for 90 days. glimepiride 1 mg tablet TAKE 1 TABLET BY MOUTH EVERY DAY hydrochlorothiazide 25 mg tablet Take 1 tablet every day by oral route for 90 days. lisinopril 5 mg tablet Take 1 tablet every day by oral route for 90 days. metformin ER 500 mg tablet,extended release 24 hr TAKE 2 TABLETS BY MOUTH TWICE A DAY metoprolol tartrate 100 mg tablet Take 1 tablet twice a day by oral route. omeprazole 40 mg capsule,delayed release TAKE 1 [...] ft 9 in 206 lbs 30.4 kg/m2 122/72 mm[Hg] Lab Results Date Name Specimen Result Interpretation Description Value Range Status Address Ankle Brachial Index No observation recorded. [facility]) Hobby: [phone] [place] [address], [place] Glucose, Fingerstick, Blood Blood Glucose: mg/dl 145 [facility]) Hobby: [id number], [place] Allergies Code Code System Name Reaction Severity [...] Rupture of Posterior Cruciate Ligament Active 10/01/2018 Hypertrophic Cardiomyopathy Active 11/30/2018 Hypertriglyceridemia Active 12/02/2018 Hypertensive Heart and Renal Disease Active 12/02/2018 Chronic Kidney Disease Stage 3 Active 12/02/2018 Retina-normal Active 01/08/2019 Procedures Date Name Performed by 07/17/2014 Other Information not available Colonoscopy & Polypectomy Information not available Hysterectomy (Partial) Information not available 01/28/2019 Ankle Brachial Index [facility] ([facility]) [phone] [facility] [address] [place] [address] (Work [address]) 01/28/2019 Electrocardiogram [facility]) [address] [facility] [address] [place] [address] (Work [address]) Vaccine List Vaccine Type pneumococcal conjugate PCV 13 06/16/20170.5 mL pneumococcal polysaccharide PPV23 11/05/2014 Social History Smoking Status Never Smoker Past Encounters 01/28/2019 Pre-surgery Evaluation; Type 2 Diabetes Mellitus; Hypertensive Heart and Renal Disease; Chronic Kidney Disease Stage 3; Paroxysmal Atrial Fibrillation; Hypertrophic Cardiomyopathy; Screening for Cardiovascular System Disease Jesse Byrd Jr, MD: [address] [facility], [facility] [address], [place] [address], Ph. History of Present Illness Hypertension Reported [...] the low 100s). Labs: last A1C result: 5.7. Context: no side effects from medications. Associated Symptoms: no dizziness, no sweats, no headaches, no confusion, no increased thirst, no increased appetite, no increased urination, no blurred vision, no numbness of feet Notes: Endorses medication compliance. Hyperlipidemia Reported By: Patient HPI: Type of hyperlipidemia: combined, hypercholesterolemia. Duration: chronic. Control: usually well controlled. Current Therapy: currently taking: simvastatin, last LDL level: 89 date: 89. Compliance: compliant. Complications: no coronary artery disease. Risk Factors: diabetes, hypertension Note:Patient presents for lab pre-operative evaluation. Currently without new complaint. Review of Systems Comprehensive General Adult ROS Reported By: Patient Constitutional: Constitutional: no significant weight gain, no significant weight loss Cardiovascular: Cardiovascular: no chest pain, no shortness of breath when walking Respiratory: Respiratory: no cough, no wheezing, no shortness of breath Endocrine: Endocrine: no fatigue Physical Exam Cardiology Exam Reported By: Patient Constitutional: General Appearance: well-nourished, well-developed, appears stated age. Level of Distress: comfortable Lungs: Respiratory Effort: unlabored. Chest Exam: no chest wall tenderness. Auscultation: clear, no wheezing, no rales, no rhonchi Cardiovascular: Rate And Rhythm: irregularly irregular. Heart Sounds: normal S1, physiologically split S2, no rub, no gallop, no click. Systolic Murmur: not heard. Diastolic Murmur: not heard. Extremities: no cyanosis, no edema, no peripheral signs of emboli Peripheral Pulses: Pulses: full and equal in all extremities except if noted Skin: Inspection and Palpation: warm and dry
--- OUTSIDE RECORDS SUMMARY | 2019-02-19 08:32 | XMS REPORT | Summary of Care ---
Author Author MARIA ELENA Lugo, AURY Organization Unknown Address Unknown Phone Unavailable Care Team Providers Care Car Customizer Name Role Phone AURY ARREDONDO M.D. Unavailable Unavailable Rivka Rodriguez M.A. Unavailable Unavailable ANISH BIRMINGHAM MD, AISHA Unavailable Unavailable Unavailable Unavailable Functional Status Name Dates Details Functional status health issues are not documented Status: Name Dates Details Cognitive status health issues are not documented Status: Problems Name Dates Details Atrial fibrillation (427.31, I48.91) Status: Active Cardiomyopathy, hypertrophic (425.18, I42.2) Status: Active Diabetes mellitus type 2, uncontrolled (250.02, E11.65) Status: Active Essential (primary) hypertension (401.9, I10) Status: Active Hyperlipidemia (272.4, E78.5) Status: Active Medications Name Dates Details Aspirin EC 81 MG Oral Tablet Delayed Release TAKE 1 TABLET DAILY. Active Omeprazole 40 MG Oral Capsule Delayed Release TAKE 1 CAPSULE BY MOUTH EVERY DAY * Quantity: 90 Refills: 1 AURY ARREDONDO M.D. * Start : 05-Jan-2016 Active Calcium 600+D TABS qd * Refills: 0 Active Metoprolol Tartrate 100 MG Oral Tablet Take 1 tablet by mouth twice a day * Quantity: 180 Refills: 1 AURY ARREDONDO M.D. * Start : 30-Dec-2011 Active Xarelto 20 MG Oral Tablet TAKE 1 TABLET BY MOUTH DAILY * Quantity: 90 Refills: 1 AURY ARREDONDO M.D. * Start : 30-Dec-2011 Active Simvastatin 20 MG Oral Tablet TAKE 1 TABLET BY MOUTH AT BEDTIME * Quantity: 90 Refills: 1 AURY ARREDONDO M.D. * Start : 09-Jan-2012 Active Lisinopril 5 MG Oral Tablet TAKE 1 TABLET BY MOUTH DAILY * Quantity: 90 Refills: 1 AURY ARREDONDO M.D. * Start : 03-Jul-2013 Active hydroCHLOROthiazide 25 MG Oral Tablet Take 1 tablet by mouth every morning * Quantity: 90 Refills: 1 AURY ARREDONDO M.D. Start : 05-Nov-2013 Active metFORMIN HCl ER 500 MG Oral Tablet Extended Release 24 Hour TAKE 2 TABLET TWICE DAILY * Quantity: 360 Refills: 0 AURY ARREDONDO M.D. Start : 06-Nov-2015 Active Metoclopramide HCl - 10 MG Oral Tablet TAKE 1 TABLET EVERY 6 HOURS NEEDED. * Refills: 0 * Start : 10-Nov-2015 Active Vitamin C & D3/Marisabel Hips 500-1000-20 MG-UNIT-MG Oral Capsule qd * Refills: 0 * Start : 10-Nov-2015 Active Super B-Complex Oral Tablet TAKE 1 TABLET DAILY. * Refills: 0 * Start : 10-Nov-2015 Active Iron 325 (65 Fe) MG Oral Tablet TAKE 1 TABLET DAILY DIRECTED. * Refills: 0 * Start : 10-Nov-2015 Active dilTIAZem HCl ER Beads 180 MG Oral Capsule Extended Release 24 Hour TAKE 1 CAPSULE BY MOUTH DAILY * Quantity: 90 Refills: 1 AURY ARREDONDO M.D. Start : 10-Nov-2015 Active Xarelto 20 MG Oral Tablet TAKE 1 TABLET DAILY * Quantity: 90 Refills: 1 AURY ARREDONDO M.D. Start : 31-Jan-2018 Active Glimepiride 1 MG Oral Tablet TAKE 1 TABLET ONCE DAILY. * Refills: 0 * Start : 29-Nov-2018 Active Allergies and Adverse Reactions Name Dates Details No Known Drug Allergies (Allergy) Status: Active Past Medical History Name Dates Details History of Cardiomyopathy (425.4) Status: Resolved History of essential hypertension (V12.59, Z86.79) Status: Resolved History of heartburn (V12.79, Z87.898) Status: Resolved History of hyperlipidemia (V12.29, Z86.39) Status: Resolved History of Paroxysmal atrial fibrillation (427.31, I48.0) Status: Resolved Procedures Procedure Dates Details History of Total Abdominal Hysterectomy With Removal Of Both Ovaries Completed History of Bladder Surgery Completed Immunization Name Dates Details Immunizations not documented Family History Name Dates Details Family history of Cancer Comments: Family History Status: Active Family history of Hypertension (V17.49) Comments: Family History Status: Active Social History Name Dates Details - Status: Name Dates Details Never smoker Vital Signs Date Test Result Details [id number] BP Systolic 130 mm[Hg] Status: Comments: Location: LUE; Position: Sitting BP Diastolic 72 mm[Hg] Status: Comments: Location: LUE; Position: Sitting Height 69 in Status: Weight 202 lb Status: Body Mass Index Calculated 29.83 kg/m2 Status: Body Surface Area Calculated 2.07 m2 Status: Heart Rate 76 /min Status: Comments: Location: L Radial; Quality: Normal Results Date Description Value Details Results not documented Plan of Care Name Dates Details Planned Observations Planned Goals not documented Interventions Provided Medication Changes* dilTIAZem HCl ER Beads 180 MG Oral Capsule Extended Release 24 Hour - Renew * hydroCHLOROthiazide 25 MG Oral Tablet - Renew * Lisinopril 5 MG Oral Tablet - Renew * Metoprolol Tartrate 100 MG Oral Tablet - Renew * Omeprazole 40 MG Oral Capsule Delayed Release - Renew * Simvastatin 20 MG Oral Tablet - Renew Instructions Name Dates Details Instructions not documented Encounters Appointment; AURY ARREDONDO M.D. Encounter Diagnosis: Problem not documented On: 04-Apr-2017 10:30 Appointment; AURY ARREDONDO M.D. Encounter Diagnosis: Problem not documented On: 07-Apr-2017 13:50 Appointment; AURY ARREDONDO M.D. Encounter Diagnosis: Problem not documented On: 10-Aug-2017 10:30 Appointment; AURY ARREDONDO M.D. Encounter Diagnosis: Problem not documented On: 07-Dec-2017 9:40 Appointment; AURY ARREDONDO M.D. Encounter Diagnosis: Problem not documented On: 07-Dec-2017 9:45 Appointment; AURY ARREDONDO M.D. Encounter Diagnosis: Problem not documented On: 31-May-2018 9:20 Appointment; AURY ARREDONDO M.D. Encounter Diagnosis: Problem not documented On: 29-Nov-2018 9:30
[2019-02-19 11:45] VITALS: BP 154/84
== END | disposition home or self-care (01) ==
LOC: OR 08:18
PROVIDERS: ATTEND Ophthalmology
DX: H25.12 Age-related nuclear cataract, left eye (principal); I48.91 Unspecified atrial fibrillation; E11.9 Type 2 diabetes mellitus without complications; R03.0 Elevated blood-pressure reading, without diagnosis of hypertension; Z79.82 Long term (current) use of aspirin; Z79.84 Long term (current) use of oral hypoglycemic drugs; Z79.02 Long term (current) use of antithrombotics/antiplatelets
CPT/HCPCS: 36415; 66984; 82948; J2250; J3010; V2632

== ENCOUNTER → 2019-03-05 | Day surgery (SDC) | payer MEDICARE ==
--- OUTSIDE RECORDS SUMMARY | 2019-03-05 11:44 | XMS REPORT | Continuity of Care Document ---
Author Author [facility] Organization [facility] Address Unknown Phone Unavailable Care Team Providers Care Appraiser Land Name Role Phone [employer] Unavailable Unavailable Problems Problem Status Onset Date Classification Date Reported Comments Source Upper respiratory infection 10/15/2018 Diagnosis 10/15/2018 [facility] Seasonal allergy 10/15/2018 Diagnosis 10/15/2018 [facility] Seasonal allergic rhinitis 10/04/2018 Diagnosis 10/15/2018 [facility] Viremia 10/04/2018 Diagnosis 10/15/2018 [facility] Fever 10/04/2018 Diagnosis 10/15/2018 [facility] Sore throat symptom 10/04/2018 Diagnosis 10/15/2018 [facility] Tear of Medial Meniscus of Knee 10/01/2018 Problem 10/15/2018 [facility] Rupture of Posterior Cruciate Ligament 10/01/2018 Problem 10/15/2018 [facility] Epidermoid cyst of skin 09/18/2018 Diagnosis 10/15/2018 [facility] Paroxysmal atrial fibrillation 09/18/2018 Diagnosis 10/15/2018 [facility] Type 2 diabetes mellitus 09/18/2018 Diagnosis 10/15/2018 [facility] Screening for osteoporosis 09/10/2018 Diagnosis 10/05/2018 [facility] Long-term current use of anticoagulant 09/10/2018 Diagnosis 10/05/2018 [facility] Non-thrombocytopenic purpura 09/10/2018 Diagnosis 10/05/2018 [facility] Benign hypertensive heart disease 09/10/2018 Diagnosis 10/05/2018 [facility] Overweight 09/10/2018 Diagnosis 10/05/2018 [facility] Body mass index 25-29 - overweight 09/10/2018 Diagnosis 10/05/2018 [facility] Adult health examination 09/10/2018 Diagnosis 10/05/2018 [facility] At risk for falls 09/10/2018 Diagnosis 10/05/2018 [facility] Advance directive discussed with patient 09/10/2018 Diagnosis 10/05/2018 [facility] Depression screening 09/10/2018 Diagnosis 10/05/2018 [facility] Non-thrombocytopenic Purpura 09/10/2018 Problem 10/15/2018 [facility] Rosacea 01/10/2018 Problem 10/15/2018 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 Problem 10/15/2018 [facility] Peripheral Venous Insufficiency 11/27/2017 Problem 10/15/2018 [facility] Benign Hypertensive Heart Disease 03/28/2017 Problem 10/15/2018 [facility] Paroxysmal Atrial Fibrillation 03/28/2017 Problem 10/15/2018 [facility] Gastroesophageal Reflux Disease 03/28/2017 Problem 10/15/2018 [facility] Medications Medication Details Route Status Patient Instructions Ordering Provider Order Date Source 24 HR Diltiazem Hydrochloride 180 MG Extended Release Oral Capsule diltiazem ER 180 mg capsule,24 hr,extended release Take 1 capsule every day by oral route for [address]. [address] [facility] glimepiride 1 MG Oral Tablet glimepiride 1 mg tablet Take 1 tablet every day by oral route for [address]. [address] [facility] Hydrochlorothiazide 25 MG Oral Tablet hydrochlorothiazide 25 mg tablet Take 1 tablet every day by oral route for [address] [facility] Lisinopril 5 MG Oral Tablet lisinopril 5 mg tablet Take 1 tablet every day by oral route for [address] [facility] 24 HR Metformin hydrochloride 500 MG Extended Release Oral Tablet metformin ER 500 mg tablet,extended release 24 hr Take 2 tablets twice a day by oral route for 90 days. Active [facility] Metoprolol Tartrate 100 MG Oral Tablet metoprolol tartrate 100 mg tablet Take 1 tablet twice a day by oral route. Active [facility] Metronidazole 0.0075 MG/MG Topical Gel metronidazole 0.75 % topical gel APPLY A THIN LAYER TO THE AFFECTED AREA(S) BY TOPICAL ROUTE 2 TIMES PER DAY IN THE MORNING AND EVENING Active [facility] Omeprazole 40 MG Delayed Release Oral Capsule omeprazole 40 mg capsule,delayed release TAKE 1 CAPSULE BY MOUTH EVERY DAY Active [facility] OneTouch Delica Lancets 33 gauge OneTouch Delica Lancets 33 gauge Take 1 each every day by miscell. route for 90 days. Active [facility] OneTouch Ultra Blue Test Strip OneTouch Ultra Blue Test Strip Active [facility] Simvastatin 20 MG Oral Tablet simvastatin 20 mg tablet Take 1 tablet every day by oral route for 90 days. Active [facility] rivaroxaban 20 MG Oral Tablet [Xarelto] Xarelto 20 mg tablet Take 1 tablet by oral route for 90 days. Active [facility] Coricidin HBP Cold & Flu Coricidin HBP Cold and Flu TAKE 2 TABS EVERY 4 - 6 HOURS Active [facility] 1 ML Dexamethasone phosphate 4 MG/ML Injection dexamethasone 4 mg/mL injection solution Take 1 mL by injection route for 1 day. Active [facility] Oseltamivir 75 MG Oral Capsule [Tamiflu] Tamiflu 75 mg capsule Take 1 capsule twice a day by oral route for 5 days. Active [facility] 1 ML Triamcinolone Acetonide 40 MG/ML Injection triamcinolone acetonide 40 mg/mL suspension for injection Take 1 mL by injection route for 1 day. Active [facility] Tylenol 500 mg tablet Tylenol 500 mg tablet Take 2 tablets every 4 hours by oral route. Active [facility] Allergies, Adverse Reactions, Alerts No Known Medication Allergies Immunizations Immunization Date Given Site Status Last Updated Comments Source pneumococcal conjugate PCV 13 06/16/2017 completed [facility] pneumococcal polysaccharide PPV23 11/05/2014 completed [facility] Results Order Name Results Value Reference Range Date Interpretation Comments Source Type Flu A negative 10/04/2018 [facility] Type Flu B negative 10/04/2018 [facility] Glucose [Mass/volume] in Capillary blood Blood Glucose: mg/dl 98 10/04/2018 [facility] Strep negative 10/04/2018 [facility] Glucose [Mass/volume] in Capillary blood Blood Glucose: mg/dl 161 09/18/2018 [facility] Glucose [Mass/volume] in Capillary blood Blood Glucose: mg/dl 161 09/18/2018 [facility] Glucose [Mass/volume] in Capillary blood Blood Glucose: mg/dl 91 09/10/2018 [facility] Glucose [Mass/volume] in Capillary blood Blood Glucose: mg/dl 91 09/10/2018 [facility] Pathology Reports No Data Provided for This Section Diagnostic Reports No Data Provided for This Section Consultation Notes No Data Provided for This Section Discharge Summaries No Data Provided for This Section History and Physicals No Data Provided for This Section Vital Signs Vital Sign Value Date Comments Source Diastolic (mm Hg) 78 10/15/2018 [facility] Height 69 10/15/2018 [facility] [...] Provider ADM Date DC Date Status Source [facility] Byrd Jr, MD: [address], [facility] [address] [address], Ph. [id number] Jesse Byrd Jr 09/10/2018 [facility] Byrd Jr, MD: [address], [facility] [address] [address], Ph. [id number] Jesse Byrd Jr 09/10/2018 [facility] Byrd Jr, MD: [address], [facility] [address] [id number], Ph. [id number] Jesse Byrd Jr 09/10/2018 [facility] Byrd Jr, MD: [address], [facility] [address] [id number], Ph. [id number] Jesse Byrd Jr 09/18/2018 [facility] Jesse Byrd Jr, MD: [address], [address], [place] [address], Ph. [id number] Jesse Byrd Jr 09/18/2018 [facility] Jesse Byrd Jr, MD: [address], [address], [place] [address], Ph. [id number] Jesse Byrd Jr 09/18/2018 [facility] Karen Johnson MD: [address], [address], [place] [address], Ph. [id number] Thrvicki Mcraelorsuresh 10/04/2018 [facility] Johnson MD: [address], [address], [place] [address], Ph. [id number] Thriveni Thorlorsuresh 10/04/2018 [facility] Jesse Byrd Jr, MD: [address], [address], [address], Ph. [id number] Jesse Byrd Jr 10/15/2018 [facility] Procedures Procedure Code Date Perfomer Comments Source Colonoscopy & Polypectomy [address]307 10/19/2016 [facility] Other 07/17/2014 [facility] Hysterectomy (Partial) [facility] Assessment and Plan No Data Provided for This Section Plan of Care No Data Provided for This Section Social History Social History Date Source Smoking Status Never Smoker 06/16/2017 [facility] Family History No Data Provided for This Section Advance Directives No Data Provided for This Section Functional Status No Data Provided for This Section
[2019-03-05 14:50] VITALS: BP 101/72
== END | disposition home or self-care (01) ==
LOC: OR 11:32
PROVIDERS: ATTEND Ophthalmology
DX: H25.11 Age-related nuclear cataract, right eye (principal); I10 Essential (primary) hypertension; I48.91 Unspecified atrial fibrillation; E11.9 Type 2 diabetes mellitus without complications; F41.9 Anxiety disorder, unspecified; Z79.82 Long term (current) use of aspirin; Z79.84 Long term (current) use of oral hypoglycemic drugs; Z79.02 Long term (current) use of antithrombotics/antiplatelets
CPT/HCPCS: 66984; J2250; J3010; V2632

== ENCOUNTER 2021-06-11 12:42 | Emergency (ER) | payer MEDICARE ==
[~2021-06-11] VITALS: Ht 175.3 cm; Wt 86.2 kg
[~2021-06-11 12:42] MED LIST changes: -FENTANYL CITRATE/PF 100MCG/2 ML INJ ONE; -MIDAZOLAM HCL 2 MG/2 ML VIAL ONE; -OR PHACO EYE KIT ONE; -PREOP PHACO EYE KIT ONE
[2021-06-11 13:17] LABS: BASOPHILS % 0.5 % (0.0-1.0); EOSINOPHILS # (AUTO) 0.2 (0.0-0.4); EOSINOPHILS % 1.9 % (0.0-6.0); HEMATOCRIT 30.3 % (34.2-44.1); HEMOGLOBIN 9.9 g/dL (12.0-16.0); LYMPHOCYTES # (AUTO) 1.5 (1.0-3.2); LYMPHOCYTES % 17.4 % (18.0-39.1); MEAN CORPUSCULAR HEMOGLOBIN 31.3 pg (28-32); MEAN CORPUSCULAR HGB CONC 32.7 g/dL (31-35); MEAN CORPUSCULAR VOLUME 95.9 fL (81-99); MONOCYTES # (AUTO) 0.5 (0.2-0.8); MONOCYTES % 5.8 % (4.4-11.3); NEUTROPHILS # (AUTO) 6.2 (2.1-6.9); PLATELET COUNT 249 x10e3/uL (140-360); RED BLOOD COUNT 3.16 x10e6/uL (3.6-5.1); RED CELL DISTRIBUTION WIDTH 13.3 % (11.7-14.4)
[2021-06-11 13:23] LABS: INR 1.42; PROTHROMBIN TIME 18.5 seconds (11.9-14.5)
[2021-06-11 13:24] LABS: PARTIAL THROMBOPLASTIN TIME 33.9 seconds (23.8-35.5)
[2021-06-11 13:30] LABS: ANION GAP 16.2 mmol/L (8-16); CREATININE, SERUM 0.79 mg/dL (0.57-1.11); POTASSIUM 3.2 mmol/L (3.5-5.1)
[2021-06-11] MEDS ORDERED: POTASSIUM CHLORIDE 20 MEQ TAB CR PO STA (13:47)
[2021-06-11] MEDS ORDERED: IOPAMIDOL 370 MG/ML 200 ML INFUS..BTL INJ ONE (13:54)
[2021-06-11] MEDS ORDERED: SODIUM CHLORIDE 0.9% 50ML 50 ML ONE (13:54)
[2021-06-11 17:01] VITALS: BP 146/72
[2021-06-12] MEDS ORDERED: DYRENIUM50 MG PO (08:40)
== END 2021-06-11 17:09 | disposition home or self-care (01) ==
LOC: ER 12:54
DX: I50.9 Heart failure, unspecified (principal); R60.9 Edema, unspecified; E11.9 Type 2 diabetes mellitus without complications; I48.91 Unspecified atrial fibrillation; E78.5 Hyperlipidemia, unspecified; K21.9 Gastro-esophageal reflux disease without esophagitis
CPT/HCPCS: 36415; 71045; 71260; 80048; 83880; 84484; 85025; 85610; 85730; 93005; 93970; 99283; Q9967

== ENCOUNTER 2021-06-12 03:08 | Inpatient (IN) | payer MEDICARE ==
[~2021-06-12] VITALS: Ht 175.3 cm; Wt 86.2 kg
[2021-06-12] VITALS (8 sets, daily range): BP systolic 96–153; BP diastolic 64–113
[2021-06-12] MEDS ORDERED: ASPIRIN 81 MG CHEW TAB PO ONE (03:15)
[2021-06-12] MEDS ORDERED: FUROSEMIDE INJ 10 MG/ML 4 ML VIAL IV STA (03:19)
[2021-06-12] MEDS ORDERED: DILTIAZEM HCL 5 MG/ML 5 ML VIAL IV STA (03:22)
[2021-06-12] MEDS ORDERED: DIGOXIN INJ 0.25 MG/ML 2 ML AMP IV STA (03:22)
[2021-06-12 03:31] LABS: BASOPHILS # (AUTO) 0.1 (0.0-0.1); BASOPHILS % 0.5 % (0.0-1.0); EOSINOPHILS # (AUTO) 0.3 (0.0-0.4); EOSINOPHILS % 1.3 % (0.0-6.0); HEMATOCRIT 34.1 % (34.2-44.1); HEMOGLOBIN 10.8 g/dL (12.0-16.0); LYMPHOCYTES # (AUTO) 4.2 (1.0-3.2); LYMPHOCYTES % 22.4 % (18.0-39.1); MEAN CORPUSCULAR HEMOGLOBIN 31.6 pg (28-32); MEAN CORPUSCULAR HGB CONC 31.7 g/dL (31-35); MEAN CORPUSCULAR VOLUME 99.7 fL (81-99); MONOCYTES % 5.3 % (4.4-11.3); NEUTROPHILS # (AUTO) 13.2 (2.1-6.9); PLATELET COUNT 332 x10e3/uL (140-360); RED BLOOD COUNT 3.42 x10e6/uL (3.6-5.1); RED CELL DISTRIBUTION WIDTH 13.5 % (11.7-14.4)
[2021-06-12] MEDS ORDERED: DIGOXIN INJ 0.25 MG/ML 2 ML AMP ONE (03:35)
[2021-06-12] MEDS ORDERED: DILTIAZEM HCL VIAL 5 ML ONE (03:35)
[2021-06-12 03:50] LABS: ALBUMIN 3.7 g/dL (3.5-5.0); ALBUMIN/GLOBULIN RATIO 1.2 (0.8-2.0); ANION GAP 21.2 mmol/L (8-16); CALCIUM 8.5 mg/dL (8.4-10.2); CREATININE, SERUM 0.96 mg/dL (0.57-1.11); POTASSIUM 3.2 mmol/L (3.5-5.1)
[2021-06-12 03:53] LABS: B-TYPE NATRIURETIC PEPTIDE2 548.1 pg/mL (0-100)
[2021-06-12 03:56] LABS: CREATINE KINASE MB 1.2 ng/mL (0-5.0)
[2021-06-12] MEDS: PIPERACILLIN/TAZOBACTAM 3.375 GM in SODIUM CHLORIDE 0.9% 50ML 50 ML IV SCH ×3 (04:18→17:10)
[2021-06-12 05:28] LABS: CREATINE KINASE MB 1.3 ng/mL (0-5.0)
[2021-06-12 05:29] LABS: CLARITY,URINE SL CLOUDY (CLEAR); COLOR,URINE YELLOW (YELLOW); KETONES,URINE NEGATIVE (NEGATIVE); LEUKOCYTE ESTERASE ,URINE NEGATIVE (NEGATIVE); NITRITE,URINE POSITIVE (NEGATIVE); PROTEIN,URINE DIPSTICK NEGATIVE (NEGATIVE); URINE UROBILINOGEN 0.2 mg/dL (0.2 - 1)
[2021-06-12 05:52] LABS: BACTERIA,URINE MANY /HPF
[2021-06-12] MEDS ORDERED: DYRENIUM50 MG PO (08:40)
[2021-06-12 09:36] LABS: ALBUMIN 3.4 g/dL (3.5-5.0); ANION GAP 15.6 mmol/L (8-16); CALCIUM 8.9 mg/dL (8.4-10.2); CREATININE, SERUM 0.97 mg/dL (0.57-1.11); POTASSIUM 3.6 mmol/L (3.5-5.1)
[2021-06-12] MEDS ORDERED: FUROSEMIDE INJ 10 MG/ML 2 ML VIAL IV SCH (09:45)
[2021-06-12 10:52] LABS: CHOL/HDL RATIO 3.4 (3.0-3.6)
[2021-06-12 11:13] LABS: FREE THYROXINE INDEX 1.8147 (1.4-3.8); THYROID STIMULATING HORMONE 1.772 uIU/mL (0.350-4.940)
[2021-06-12] MEDS ORDERED: GLYBURIDE 5 MG TAB PO SCH (11:30)
[2021-06-12] MEDS: GLYBURIDE 2.5 MG TAB PO SCH (11:47)
[2021-06-12 13:34] LABS: CREATINE KINASE MB 1.3 ng/mL (0-5.0)
[2021-06-12] MEDS: METFORMIN HCL 500 MG TAB CR PO SCH (17:01)
[2021-06-12] MEDS: METOPROLOL TARTRATE 50 MG TAB PO SCH (17:01)
[2021-06-12] MEDS: FUROSEMIDE INJ 10 MG/ML 2 ML VIAL IV SCH (17:10)
[2021-06-12] MEDS ORDERED: LISINOPRIL 2.5 MG TAB PO SCH (21:00)
[2021-06-12] MEDS: SIMVASTATIN 20 MG TAB PO SCH (21:00)
[2021-06-13] VITALS (8 sets, daily range): BP systolic 115–144; BP diastolic 59–84
[2021-06-13] MEDS ORDERED: SODIUM CHLORIDE 0.9% 250ML 250 ML ONE
[2021-06-13] MEDS: PIPERACILLIN/TAZOBACTAM 3.375 GM in SODIUM CHLORIDE 0.9% 50ML 50 ML IV SCH ×4 (00:06→16:59)
[2021-06-13 06:30] LABS: BASOPHILS # (AUTO) 0.1 (0.0-0.1); BASOPHILS % 0.5 % (0.0-1.0); EOSINOPHILS # (AUTO) 0.2 (0.0-0.4); EOSINOPHILS % 1.9 % (0.0-6.0); HEMATOCRIT 32.6 % (34.2-44.1); HEMOGLOBIN 10.6 g/dL (12.0-16.0); LYMPHOCYTES % 21.4 % (18.0-39.1); MEAN CORPUSCULAR HEMOGLOBIN 31.1 pg (28-32); MEAN CORPUSCULAR HGB CONC 32.5 g/dL (31-35); MEAN CORPUSCULAR VOLUME 95.6 fL (81-99); MONOCYTES # (AUTO) 0.6 (0.2-0.8); MONOCYTES % 6.5 % (4.4-11.3); NEUTROPHILS # (AUTO) 6.5 (2.1-6.9); NEUTROPHILS % 69.4 % (38.7-80.0); PLATELET COUNT 252 x10e3/uL (140-360); RED BLOOD COUNT 3.41 x10e6/uL (3.6-5.1); RED CELL DISTRIBUTION WIDTH 13.2 % (11.7-14.4)
[2021-06-13 06:59] LABS: ALBUMIN 3.3 g/dL (3.5-5.0); ANION GAP 17.5 mmol/L (8-16); CALCIUM 9.5 mg/dL (8.4-10.2); CREATININE, SERUM 1.09 mg/dL (0.57-1.11); POTASSIUM 3.5 mmol/L (3.5-5.1)
[2021-06-13 08:16] LABS: CREATINE KINASE MB 1.2 ng/mL (0-5.0)
[2021-06-13] MEDS ORDERED: TRIAMTERENE 37.5 MG PO SCH (09:00)
[2021-06-13] MEDS ORDERED: HYDROCHLOROTHIAZIDE 25 MG TAB PO SCH (09:00)
[2021-06-13] MEDS: FUROSEMIDE INJ 10 MG/ML 2 ML VIAL IV SCH ×2 (09:15→15:56)
[2021-06-13] MEDS: ASPIRIN 81 MG CHEW TAB PO SCH (09:15)
[2021-06-13] MEDS: METFORMIN HCL 500 MG TAB CR PO SCH ×2 (09:15→15:56)
[2021-06-13] MEDS: DILTIAZEM HCL 180 MG CAP ER PO SCH (09:16)
[2021-06-13] MEDS: PANTOPRAZOLE SOD 40 MG TABEC PO SCH (09:17)
[2021-06-13] MEDS: METOPROLOL TARTRATE 50 MG TAB PO SCH ×2 (09:17→15:56)
[2021-06-13] MEDS: CALCIUM CARBONATE 500 MG CHEWABLE TABS PO SCH (09:17)
[2021-06-13] MEDS: RIVAROXABAN 20 MG TABLET PO SCH (09:17)
[2021-06-13] MEDS: GLYBURIDE 2.5 MG TAB PO SCH (11:47)
[2021-06-13] MEDS: SIMVASTATIN 20 MG TAB PO SCH (20:30)
[2021-06-14] VITALS (8 sets, daily range): BP systolic 105–146; BP diastolic 52–83
[2021-06-14] MEDS: PIPERACILLIN/TAZOBACTAM 3.375 GM in SODIUM CHLORIDE 0.9% 50ML 50 ML IV SCH ×2 (00:40→06:21)
[2021-06-14 05:10] LABS: BASOPHILS # (AUTO) 0.1 (0.0-0.1); BASOPHILS % 0.5 % (0.0-1.0); EOSINOPHILS # (AUTO) 0.2 (0.0-0.4); EOSINOPHILS % 1.6 % (0.0-6.0); HEMOGLOBIN 12.6 g/dL (12.0-16.0); LYMPHOCYTES # (AUTO) 2.9 (1.0-3.2); LYMPHOCYTES % 20.5 % (18.0-39.1); MEAN CORPUSCULAR HGB CONC 33.2 g/dL (31-35); MEAN CORPUSCULAR VOLUME 93.6 fL (81-99); MONOCYTES # (AUTO) 0.9 (0.2-0.8); MONOCYTES % 6.2 % (4.4-11.3); NEUTROPHILS % 70.8 % (38.7-80.0); PLATELET COUNT 324 x10e3/uL (140-360); RED BLOOD COUNT 4.06 x10e6/uL (3.6-5.1)
[2021-06-14 05:27] LABS: ANION GAP 20.4 mmol/L (8-16); CREATININE, SERUM 1.41 mg/dL (0.57-1.11); POTASSIUM 3.4 mmol/L (3.5-5.1)
[2021-06-14] MEDS: ASPIRIN 81 MG CHEW TAB PO SCH (09:11)
[2021-06-14] MEDS: RIVAROXABAN 20 MG TABLET PO SCH (09:12)
[2021-06-14] MEDS: PANTOPRAZOLE SOD 40 MG TABEC PO SCH (09:12)
[2021-06-14] MEDS: METOPROLOL TARTRATE 50 MG TAB PO SCH ×2 (09:12→16:49)
[2021-06-14] MEDS: GLYBURIDE 2.5 MG TAB PO SCH (09:12)
[2021-06-14] MEDS: DILTIAZEM HCL 180 MG CAP ER PO SCH (09:12)
[2021-06-14] MEDS: CALCIUM CARBONATE 500 MG CHEWABLE TABS PO SCH (09:12)
[2021-06-14] MEDS ORDERED: LISINOPRIL 2.5 MG TAB PO ONE (10:30)
[2021-06-14] MEDS: POTASSIUM CHLORIDE 20 MEQ TAB CR PO PRN (10:57)
[2021-06-14] MEDS ORDERED: LOPERAMIDE HCL 2 MG CAP PO PRN (13:45)
[2021-06-14] MEDS: FUROSEMIDE 40 MG TAB PO SCH (16:49)
[2021-06-14] MEDS ORDERED: CEFUROXIME AXETIL 250 MG TAB PO SCH (17:00)
[2021-06-14] MEDS: METRONIDAZOLE 500 MG TAB PO SCH (18:00)
[2021-06-14] MEDS: SIMVASTATIN 20 MG TAB PO SCH (21:00)
[2021-06-14] MEDS ORDERED: LISINOPRIL 10 MG TAB PO SCH (21:00)
[2021-06-15] VITALS: BP 109/62
[2021-06-15] MEDS: METRONIDAZOLE 500 MG TAB PO SCH ×2 (02:00→10:09)
[2021-06-15 04:00] VITALS: BP 93/61
[2021-06-15 05:11] LABS: BASOPHILS # (AUTO) 0.1 (0.0-0.1); BASOPHILS % 0.6 % (0.0-1.0); EOSINOPHILS # (AUTO) 0.2 (0.0-0.4); EOSINOPHILS % 2.3 % (0.0-6.0); HEMATOCRIT 31.2 % (34.2-44.1); HEMOGLOBIN 10.8 g/dL (12.0-16.0); LYMPHOCYTES # (AUTO) 2.7 (1.0-3.2); LYMPHOCYTES % 25.7 % (18.0-39.1); MEAN CORPUSCULAR HEMOGLOBIN 31.7 pg (28-32); MEAN CORPUSCULAR HGB CONC 34.6 g/dL (31-35); MEAN CORPUSCULAR VOLUME 91.5 fL (81-99); MONOCYTES # (AUTO) 0.8 (0.2-0.8); MONOCYTES % 7.8 % (4.4-11.3); NEUTROPHILS # (AUTO) 6.7 (2.1-6.9); NEUTROPHILS % 62.9 % (38.7-80.0); PLATELET COUNT 303 x10e3/uL (140-360); RED BLOOD COUNT 3.41 x10e6/uL (3.6-5.1); RED CELL DISTRIBUTION WIDTH 13.1 % (11.7-14.4)
[2021-06-15 05:43] LABS: ALBUMIN 3.3 g/dL (3.5-5.0); ANION GAP 18.1 mmol/L (8-16); CALCIUM 9.5 mg/dL (8.4-10.2); CREATININE, SERUM 1.51 mg/dL (0.57-1.11); POTASSIUM 3.1 mmol/L (3.5-5.1)
[2021-06-15] MEDS: FUROSEMIDE 40 MG TAB PO SCH (05:50)
[2021-06-15] MEDS ORDERED: GLYBURIDE 2.5 MG TAB PO SCH (07:30)
[2021-06-15] MEDS: METOPROLOL TARTRATE 50 MG TAB PO SCH (09:00)
[2021-06-15 09:28] VITALS: BP 88/56
[2021-06-15] MEDS: PANTOPRAZOLE SOD 40 MG TABEC PO SCH (10:09)
[2021-06-15] MEDS: CALCIUM CARBONATE 500 MG CHEWABLE TABS PO SCH (10:09)
[2021-06-15] MEDS: RIVAROXABAN 20 MG TABLET PO SCH (10:09)
[2021-06-15] MEDS: ASPIRIN 81 MG CHEW TAB PO SCH (10:09)
[2021-06-15] MEDS: DILTIAZEM HCL 180 MG CAP ER PO SCH (10:12)
[2021-06-15] MEDS: POTASSIUM CHLORIDE 20 MEQ TAB CR PO PRN (13:58)
[2021-06-15] MEDS ORDERED: POTASSIUM CHLORIDE 20 MEQ TAB CR PO NR (14:00)
[2021-06-15] MEDS ORDERED: FUROSEMIDE40 MG PO (14:06)
[2021-06-15 14:11] VITALS: BP 121/57
[2021-06-16] MEDS ORDERED: FUROSEMIDE 20 MG TAB PO SCH (09:00)
== END 2021-06-15 14:43 | disposition home or self-care (01) | DRG 291 ==
LOC: ER 03:13 → ERHOLD 05:58 → IMCU 08:01 → MED/SURG2 20:58
PROVIDERS: ADMIT Internal Medicine; ATTEND Internal Medicine
DX: I11.0 Hypertensive heart disease with heart failure (principal); J18.9 Pneumonia, unspecified organism; I50.33 Acute on chronic diastolic (congestive) heart failure; I48.20 Chronic atrial fibrillation, unspecified; N39.0 Urinary tract infection, site not specified; E87.2 Acidosis; K52.1 Toxic gastroenteritis and colitis; I42.9 Cardiomyopathy, unspecified; Z79.01 Long term (current) use of anticoagulants; B96.20 Unspecified Escherichia coli [E. coli] as the cause of diseases classified elsewhere; D64.9 Anemia, unspecified; Z85.028 Personal history of other malignant neoplasm of stomach; T36.95XA Adverse effect of unspecified systemic antibiotic, initial encounter; Z20.822 Contact with and (suspected) exposure to COVID-19
CPT/HCPCS: 36415; 51700; 71045; 76604; 80048; 80053; 80061; 81001; 82550; 82553; 82607; 82746; 82948; 83036; 83605; 83880; 83921; 84436; 84443; 84479; 84484; 85025; 87040; 87086; 87186; 93005; 93306; 94799; 97139; 99251; 99284; J1160; J1940; J2543; J7050; U0002